=== PATIENT | female | born 1950 | race Caucasian/White ===

== ENCOUNTER → 2021-09-30 | Outpatient (CLI) | payer MEDICARE, SELFPAY ==
--- NOTE | 2021-09-30 15:45 | RAD_ITS ---
STUDY: X-RAY - ABDOMEN/PELVIS REASON FOR EXAM: Female, 70 years old. constipation TECHNIQUE: 3 AP supine views of the abdomen and pelvis. COMPARISON: Chest radiographs of this date.. FINDINGS: Small amount of gas noted within the stomach. Scattered gas and fecal material noted within the colon. Minimal gas is scattered within a few nondistended small bowel loops. No pathologically distended bowel loops or significant air-fluid levels identified. Hepatic and splenic shadows are not enlarged. Numerous calcified phleboliths in the pelvis. 1.3 mm oval calcification is projected over the left kidney and may represent a small renal calculus. Lower lumbar facet arthritis is present. The hip joint spaces are preserved. RAD/Abdomen Single View IMPRESSION: Normal bowel gas pattern. No findings of constipation. Possible small left renal calculus. Lower lumbar facet arthritis. Electronically Signed: Justin Rogers MD at 7:04 EDT ,
--- NOTE | 2021-09-30 15:45 | RAD_ITS ---
STUDY: X-RAY CHEST REASON FOR EXAM: Female, 70 years old. WILLIAM TECHNIQUE: PA and lateral views of the chest. COMPARISON: None. FINDINGS: Heart size is borderline enlarged with normal pulmonary vasculature. Thoracic aorta is mildly elongated. There is eventration of the medial right hemidiaphragm. Linear atelectasis or scarring noted within the right mid lung. Additional bands of linear scarring noted within the lingula. There is minimal pleural thickening or subpleural fat deposition along the lateral aspect of each midlung, benign. No patchy pneumonia, pulmonary edema, pleural effusion or metastatic pulmonary nodule identified. Findings previous right mastectomy are noted. Mild-moderate thoracic dextroscoliosis is present. No acute osseous abnormality. There is no demonstrated abnormality of the visualized soft tissue structures of the upper abdomen. RAD/Chest PA and Lateral IMPRESSION: Previous right mastectomy. Chronic findings as noted above. No acute cardiopulmonary disease process identified.. Electronically Signed: Justin Rogers MD at 7:01 EDT ,
== END | disposition home or self-care (01) ==
LOC: RAD 15:44
PROVIDERS: PCP Internal Medicine; Referring Provider Nurse Practitioner Adult Health; Visit Provider Nurse Practitioner Adult Health
DX: K59.00 Constipation, unspecified (principal); R06.09 Other forms of dyspnea
CPT/HCPCS: 71046; 74018

== ENCOUNTER → 2021-10-20 | Outpatient (CLI) | payer MEDICARE, SELFPAY ==
--- NOTE | 2021-10-20 08:57 | NM_ITS ---
CLINICAL: 71-year-old female with history of early satiety. SEMI-SOLID PHASE 99m Tc SULFUR COLLOID GASTRIC EMPTYING STUDY COMPARISON: None available FINDINGS: The patient was administered 1.2 mCi of 99m Tc sulfur colloid mixed with oatmeal and consumed per os. Image acquisitions in the anterior-posterior projections were obtained for 60 minutes. There is prompt visualization of the stomach. There is no gastroesophageal reflux identified. The T ? emptying was calculated to be 32.10 minutes, (Normal: 12-56 minutes). NM/Gastric Emptying Study IMPRESSION: 1. NORMAL 99m Tc sulfur colloid semi-solid phase (oatmeal) gastric emptying imaging examination. A. There is normal and preserved semi-solid phase gastric emptying compared to normal controls. (Tripp et al, J Nucl Med Tech 38: 186, 2010). Electronically Signed: Bryan Levine, at 14:47 EDT ,
== END | disposition home or self-care (01) ==
LOC: NM 08:55
PROVIDERS: PCP Internal Medicine; Referring Provider Nurse Practitioner Adult Health; Visit Provider Nurse Practitioner Adult Health
DX: R68.81 Early satiety (principal); R14.0 Abdominal distension (gaseous)
CPT/HCPCS: 78264; A9541

== ENCOUNTER 2022-01-19 11:19 | Day surgery (SDC) | payer MEDICARE, SELFPAY ==
[2022-01-19 12:41] VITALS: BP 174/82; PULSE 64; RESP 16; TEMP 36.2; O2SAT 99; BMI 34.8
[2022-01-19] MEDS: Lactated Ringers 1,000 ML 15 ML IV (13:05)
--- NOTE | 2022-01-19 13:30 | EGD_PTH ---
PATIENT: STEPHANIE ROSS LOC: [facility] U#:[id number] AGE/SX: 71/F ROOM: RE01/19/[address]: Dr. Herminio Alves DO : 1950 BED: DIS: 01/19/2022 SPEC #: [id number] RECD: 01/19/22 15:17 STATUS: MARGO BABS #: [id number] MELANI: 01/19/22 13:[address]: Herminio Alves DEPT: SURGICAL PATHOLOGY RECD BY: Sharron Da Silva ENTERED: 01/20/22 09:21 SP TYPE: EGD BIOPSY JONATHAN DR: Dr. Arya Monet MD Tissues: A - Duodenum, NOS B - Esophagus, NOS Procedures: Surgery Specimen Level IV HEADER OPERATION: EGD with biopsy and dilation (MAC) PRE-OP DIAGNOSIS: Peptic ulcer disease TISSUE SUBMITTED: A ? Duodenum biopsy, B ? Random esophagus biopsy MICROSCOPIC DIAGNOSIS A. Duodenum, biopsy: A fragment of duodenal mucosa, no pathologic diagnosis. B. Esophagus, random biopsy: Fragments of squamous mucosa with mild chronic inflammation. AMY:gudelia 01/21/2022 MICROSCOPIC DESCRIPTION Slides are reviewed. GROSS DESCRIPTION A - Received in fixative is one container labeled with the patient's name and designated duodenum. The specimen consists of one irregular fragment of light estevez soft tissue that measures 0.5 x 0.5 x 0.1 cm. The specimen is totally submitted in one cassette. B - Received in fixative is one container labeled with the patient's name and designated random esophagus. The specimen consists of multiple irregular fragments of light estevez soft tissue that in aggregate measure 1 x 0.3 x 0.1 cm. The specimen is totally submitted in one cassette. / AM:gudelia 01/20/2022 TC:3 [facility]: [id number] x2
--- NOTE | 2022-01-19 13:30 | PCM.HP.BLA ---
History and Physical Date of Admission: 01/19/22 STEPHANIE ROSS, is a 70 F who presents to the office today for upper abdominal bloating after eating x 3-4 months. She is referred for dysphagia but her main complaint is the bloating. She is trying to lose weight, but notes she gets out of breath easily, she feels more bloated then too. Sometimes burps a lot after eating, does feel better then. She has early satiety. She feels full but denies abdominal pain. She denies heartburn or acid reflux. Denies nausea or vomiting. Can have difficulty swallowing bread or meat, and needs extra liquids to get meds down--this began before she had EGD last year. She takes pantoprazole 40 mg, PPI was started after EGD when peptic ulcer disease was diagnosed. EGD By Dr Robbi Graham at [facility] on 11/19/20 revealed patchy erythema at GE junction, 2 small ulcerations with adherent fibrinous exudate and blood clot in distal gastric body. Colonoscopy: few scattered diverticula, repeat in 10 yrs. Negative H pylori lab. No path report available today for egd and colonoscopy. CT abd pel w/ IV contrast 12/26/20: fatty liver 3 mm nonobstructing stone left kidney daily metamucil in OJ was keeping her regular, now some constipation recently. some blood recently when stools are hard and she has to strain. Hx constipation from pain meds after treatment for breast cancer, used miralax then Hx bilat mastectomy, hx hysterectomy Comorbidities include? hypertriglyceridemia, vitamin D deficiency, obesity, hypertension, vertigo, arterial sclerosis bilateral carotids, depression, dyspnea, thyromegaly, breast cancer Exam Const General: cooperative, no acute distress and well developed Nutritional Appearance: obese Orientation: alert, awake and oriented x3 HENMT Head: normal to inspection Eyes General: appearance normal, both eyes and all related structures Resp Effort & Inspection: normal respiratory effort GI Inspection: obesity Palpation: soft, hepatosplenomegaly present, no masses and nontender Skin General: no jaundice Quality Reporting Tobacco Screening ([facility] 138) Smoking Status: Never smoker Assessment and Plan Assessment and Plan (1) PUD (peptic ulcer disease): ?Status:?Acute ?Plan: This very nice 70-year-old lady is having upper abdominal bloating after eating and early satiety.? She has known peptic ulcer disease diagnosed in November 2020.? She is on PPI therapy.? She has a fatty liver.? She has dysphagia with normal esophagus reported on EGD last year.? She does acknowledge quite a bit of stress especially considering that her daughter will have open heart surgery later this month.? She would like to focus on treating the upper abdominal bloating since that is most bothersome for her.? We will start with a gastric emptying study.? We will also work on treating her constipation.? We will get her scheduled for EGD since Dr. Alves is booking about 3 months out; that will be to reevaluate the gastric ulcers to ensure those have resolved, as well as to evaluate dysphagia.? She will also likely need esophagram.? We briefly discussed work-up for fatty liver.? Follow-up first available which is approximately 6 weeks.? She will also have a follow-up 2 weeks after her endoscopy to discuss biopsy results. Will get KUB because of constipation. Try miralax nightly, may help upper abd bloating if bowels are moving better. She again mentioned WILLIAM at end of visit so I added CXR since she's going for KUB. Will request path report for egd and colonoscopy 11/2020 at [facility] (2) Early satiety: ?Status:?Acute (3) Abdominal bloating: ?Status:?Acute (4) Fatty liver: ?Status:?Acute (5) Dysphagia: ?Status:?Acute (6) WILLIAM (dyspnea on exertion): ?Status:?Acute (7) Constipation: ?Status:?Acute ?Plan: I have examined the patient and the H&P has been reviewed. There are no clinical changes since date of exam.
[2022-01-19 13:55] VITALS: BP 126/71; BP 174/82; PULSE 66; RESP 16; TEMP 36.9; O2SAT 92
[2022-01-19 14:00] VITALS: BP 123/65; BP 174/82; PULSE 63; RESP 16; O2SAT 92
--- NOTE | 2022-01-19 14:00 | OP.EGD_ITS ---
Patient Name: Ema Nova Procedure Date: 01/19/2022 1:39 PM Date of : 1950 Age: 71 Procedure: Upper GI endoscopy Indications: Dysphagia Providers: Herminio Alves DO Referring MD: Arya Monet Medicines: Monitored Anesthesia Care Patient Profile: This is a 71 year old female. Refer to note in patient chart for documentation of history and physical. Patient has symptoms of acute dysphagia and dysphagia with solids. Complications: No immediate complications. Procedure: Pre-Anesthesia Assessment: - Prior to the procedure, a History and Physical was performed, and patient medications and allergies were reviewed. The risks and benefits of the procedure and the sedation options and risks were discussed with the patient. All questions were answered and informed consent was obtained. Patient identification and proposed procedure were verified by the physician in the pre-procedure area. Mental Status Examination: alert and oriented. Airway Examination: normal oropharyngeal airway and neck mobility. Respiratory Examination: clear to auscultation. CV Examination: normal. Prophylactic Antibiotics: The patient does not require prophylactic antibiotics. Prior Anticoagulants: The patient has taken no previous anticoagulant or antiplatelet agents. ASA Grade Assessment: II - A patient with mild systemic disease. After reviewing the risks and benefits, the patient was deemed in satisfactory condition to undergo the procedure. The anesthesia plan was to use monitored anesthesia care (MAC). Immediately prior to administration of medications, the patient was re-assessed for adequacy to receive sedatives. The heart rate, respiratory rate, oxygen saturations, blood pressure, adequacy of pulmonary ventilation, and response to care were monitored throughout the procedure. The physical status of the patient was re-assessed after the procedure. After obtaining informed consent, the endoscope was passed under direct vision. Throughout the procedure, the patient's blood pressure, pulse, and oxygen saturations were monitored continuously. The colonoscope was introduced through the mouth, and advanced to the second part of duodenum. The upper GI endoscopy was accomplished without difficulty. The patient tolerated the procedure well. Scope In: 1:42:05 PM Scope Out: 1:50:14 PM Total Procedure Duration Time 0 hours 8 minutes 9 seconds Findings: The examined esophagus was significantly tortuous. Biopsies were obtained from the proximal and distal esophagus with cold forceps for histology of suspected eosinophilic esophagitis. A moderate Schatzki ring was found in the lower third of the esophagus. A guidewire was placed and the scope was withdrawn. Dilation was performed with a Savary dilator with no resistance at 54 Fr. The dilation site was examined and showed moderate improvement in luminal narrowing. Estimated blood loss was minimal. A small hiatal hernia was present. No other significant abnormalities were identified in a careful examination of the stomach. Patchy mildly erythematous mucosa without active bleeding and with no stigmata of bleeding was found in the duodenal bulb. Biopsies were taken with a cold forceps for histology. Verification of patient identification for the specimen was done. Estimated blood loss was minimal. Impression: - Tortuous esophagus. - Moderate Schatzki ring. Dilated. - Small hiatal hernia. - Erythematous duodenopathy. Biopsied. Recommendation: - Discharge patient to home. - Resume previous diet. - Continue present medications. - Await pathology results. Procedure Code(s): --- Professional --- 62515, Esophagogastroduodenoscopy, flexible, transoral; with insertion of guide wire followed by passage of dilator(s) through esophagus over guide wire 85285, 59,51, Esophagogastroduodenoscopy, flexible, transoral; with biopsy, single or multiple CPT copyright 2017 [employer]. All rights reserved. The codes documented in this report are preliminary and upon hims coder review may be revised to meet current compliance requirements. Herminio Alves DO 01/19/2022 2:00:10 PM This report has been signed electronically. Number of Addenda: 0 Note Initiated On: 01/19/2022 1:39 PM
--- NOTE | 2022-01-19 14:00 | OP.CCLET_ITS ---
01/19/2022 Arya Monet Re : Upper GI endoscopy procedure for Ema Nova Dear Tierney This procedure was performed on Wednesday, January 19, 2022. My impressions and recommendations are as follows: Impressions : - Tortuous esophagus. - Moderate Schatzki ring. Dilated. - Small hiatal hernia. - Erythematous duodenopathy. Biopsied. Recommendations : - Discharge patient to home. - Resume previous diet. - Continue present medications. - Await pathology results. My findings are described in the full procedure note, which is enclosed. If I can be of further assistance, please feel free to contact me at . Sincerely, Herminio Alves, 01/19/2022 2:00:10 PM This report has been signed electronically.
[2022-01-19 14:05] VITALS: BP 136/81; BP 174/82; PULSE 64; RESP 16; O2SAT 92
[2022-01-19 14:10] VITALS: BP 131/77; BP 174/82; PULSE 62; RESP 16; TEMP 36.6; O2SAT 92
[2022-01-19 14:28] VITALS: BP 174/82
== END 2022-01-19 14:48 | disposition home or self-care (01) ==
LOC: EN 11:20 → AC 11:25
PROVIDERS: PCP Internal Medicine; Referring Provider Internal Medicine; Visit Provider Internal Medicine Gastroenterology
PROC: 0DJ08ZZ Inspection of Upper Intestinal Tract, Via Natural or Artificial Opening Endoscopic (ICD-10-PCS; CPT 43235; principal; 2022-01-19 13:25)
DX: K22.2 Esophageal obstruction (principal); K44.9 Diaphragmatic hernia without obstruction or gangrene; K20.90 Esophagitis, unspecified without bleeding
CPT/HCPCS: 43239; 43248; 88305; J7120; C1769; J2405